=== PATIENT | female | born 1970 | race Two or more races ===

== ENCOUNTER → 2024-06-22 | Outpatient (CLI) | payer MEDICAID, SELFPAY ==
--- NOTE | 2024-06-22 11:00 | XR_ITS ---
Examination: Breast ultrasound complete, bilateral Date and time of exam: June 22, 2024 1057 hours INDICATIONS: Left breast pain beginning one year ago, family history breast cancer Technique: Real-time grayscale ultrasonographic imaging bilateral breasts, including all 4 quadrants as well as nipple retroareolar and axillary regions. Findings: Sonographic images right breast Retroareolar cyst 7 x 8 mm 4:00 circumscribed nodule 7 x 6 mm Sonographic images left breast 2:00 nodule circumscribed 7 x 6 mm 7:00 nodule lobular margins 5 x 5 mm 9:00 nodule lobular margins 4 x 4 millimeter IMPRESSION: BI-RADS Category 3: Probably benign findings One additional 6 month bilateral breast sonography follow-up is needed to document stability of solid nodules described above
== END | disposition home or self-care (01) ==
PROVIDERS: PCP Physician Assistant; Referring Provider Physician Assistant; Visit Provider Physician Assistant
DX: N63.24 Unspecified lump in the left breast, lower inner quadrant (principal); N63.14 Unspecified lump in the right breast, lower inner quadrant; N63.25 Unspecified lump in the left breast, overlapping quadrants; N63.21 Unspecified lump in the left breast, upper outer quadrant; R92.333 Mammographic heterogeneous density, bilateral breasts
CPT/HCPCS: 76641

== ENCOUNTER → 2024-08-03 | Outpatient (CLI) | payer MEDICAID, SELFPAY ==
--- NOTE | 2024-08-03 14:00 | XR_ITS ---
EXAMINATION: PET/CT FUSION SKULL TO THIGH EXAM DATE AND TIME: August 03, 2024 1515 hours INDICATIONS: Diagnosis thyroid cancer post treatment restaging CTDI:vol (mGy) 4.97 DLP: (mGycm) 453.57 PROCEDURE: 16 mCi FDG was administered intravenously To allow for distribution and uptake of radiotracer, the patient was allowed to rest quietly in a shielded room. Imaging was performed on an integrated 16-slice PET/CT scanner, with scanning from the skull base to the mid thigh. Serum blood glucose at the time of the injection was measured 94 mg/dL. CT scanning was performed without oral or intravenous contrast material. FINDINGS: Head and Neck: There is no avtar hypermetabolism in the neck. The visualized portions of the brain are normal in appearance on CT. Chest: There is no avtar hypermetabolism in the chest. There are no pulmonary nodules. Abdomen and Pelvis: There is no avtar hypermetabolism in retroperitoneal or pelvic chains. The spleen is normal in size and FDG avidity. Musculoskeletal: Marrow uptake is within normal range. IMPRESSION: No findings of metastatic disease
== END | disposition home or self-care (01) ==
PROVIDERS: Referring Provider Physician Assistant; Visit Provider Physician Assistant
DX: C73 Malignant neoplasm of thyroid gland (principal)
CPT/HCPCS: 78815; A9552